=== PATIENT | female | born 1950 | race African-American/Black ===

== ENCOUNTER 2017-12-31 09:02 | Emergency (ER) | payer MEDICARE ==
[2017-12-31] MEDS ORDERED: ISOVUE-370 76%-LOCM 1 ML ONE (09:56)
[2017-12-31 10:23] LABS: #Eosinphils 0.1 thou/uL (0.0-0.7); #Lymphocytes 0.3 thou/uL (1.20-3.40); #Monocytes 0.2 thou/uL (0.11-0.59); #Neutrophils 3.2 thou/uL (1.40-6.50); %Basophils 0.2 % (0.0-1.0); %Eosinophils 1.5 % (0.0-10.0); %Lymphocytes 8.5 % (21.0-51.0); %Monocytes 6.1 % (0.0-10.0); %Neutrophils 83.8 % (42.0-75.0); Hemoglobin 10.8 g/dL (12.0-16.0); Mean Corpuscular HGB CONC 31.7 g/dL (32.0-36.0); Mean Corpuscular Hemoglobin 28.9 pg (27.0-31.0); Mean Corpuscular Volume 91.4 fL (78.0-98.0); Mean Platelet Volume 7.2 fL (7.4-10.4); Platelet Count 181 thou/uL (130-400); RBC Distribution Width 12.4 % (11.5-14.5); Red Blood Cell (RBC) Count 3.74 mill/uL (4.20-5.40); White Blood Cell (WBC) Count 3.8 thou/uL (4.8-10.8)
--- NOTE | 2017-12-31 10:28 | ULT ---
ULTRASOUND ABDOMEN LIMITED: (RIGHT UPPER QUADRANT) HISTORY: 67-year-old female with right upper quadrant abdominal pain. FINDINGS: Gallbladder: Normal wall thickness. No sonographic Jerry's sign, pericholecystic fluid, gallstones, or sludge. Common duct: 8 mm. Liver: Normal size and echogenicity. Pancreas: Nonspecific sonographic appearance. Right kidney: No hydronephrosis. IMPRESSION: 1. No evidence of cholelithiasis or acute cholecystitis. 2. Moderately dilated common duct, 8 mm. This raises the possibility of occult choledocholithiasis o r other cause of possible mild, partial common duct obstruction. DEREK Reyes POS: [facility]
[2017-12-31 10:46] LABS: ALT (SGPT) 12 U/L (8-55); AST (SGOT) 15 U/L (5-34); Albumin 3.8 g/dL (3.4-4.8); Alkaline Phosphatase 58 U/L (40-150); Anion Gap 10 mmol/L (10-20); BUN (Urea Nitrogen) 15 mg/dL (9.8-20.1); Bilirubin, Total 0.5 mg/dL (0.2-1.2); Calc. Creatinine Clearance 0 mL/min (70-130); Calcium 8.7 mg/dL (7.8-10.44); Carbon Dioxide 30 mmol/L (23-31); Chloride 102 mmol/L (98-107); Estimated GFR-MDRD Greater than 90; Globulin 2.3 g/dL (2.4-3.5); Glucose 103 mg/dL (80-115); Lipase 8 U/L (8-78); Potassium 3.5 mmol/L (3.5-5.1); Protein, Total 6.1 g/dL (6.0-8.3); Sodium 138 mmol/L (136-145)
--- NOTE | 2017-12-31 11:44 | CT ---
CT ABDOMEN AND PELVIS WITH IV CONTRAST: Date: 12/31/17 HISTORY: Upper abdominal pain. FINDINGS: There are mild dependent changes in the lung bases. No calcified gallstones are seen. The liver, sple en, pancreas, adrenal glands, and kidneys are normal. No abnormal biliary ductal dilatation is seen. No free air, free fluid, or lymphadenopathy noted in the abdomen or pelvis. A normal appearing append ix is present. A uterus is present. There is no evidence of aneurysmal dilatation of the abdominal ao rta. Degenerative changes are present in the spine. IMPRESSION: No evidence of acute process. POS: [facility]
== END 2017-12-31 13:02 | disposition home or self-care (01) ==
LOC: ERS 09:02
DX: R10.11 Right upper quadrant pain (principal); Z79.899 Other long term (current) drug therapy; J18.9 Pneumonia, unspecified organism; J44.9 Chronic obstructive pulmonary disease, unspecified; F41.9 Anxiety disorder, unspecified; F17.210 Nicotine dependence, cigarettes, uncomplicated; M19.90 Unspecified osteoarthritis, unspecified site
CPT/HCPCS: 36415; 74177; 76705; 83690; J2270

== ENCOUNTER 2018-05-31 10:47 | Day surgery (SDC) | payer MEDICARE ==
[2018-05-30 14:41] VITALS: BMI 26.6
--- NOTE | 2018-05-31 13:12 | HP ---
DATE OF ADMISSION: 05/31/2018 HISTORY OF PRESENT ILLNESS: This is a 67-year-old female who comes in for an EGD and a colonoscopy. The patient has a history of colon polyps from before and more than 5 years ago. The patient had abdominal pain recently. The pain is over the epigastric area and right upper quadrant. There i s mild nausea with the pain. The patient has had an EGD 4 years ago and was found to have Helicobact er pylori infection and was treated with antibiotics. The patient already has a history of bleeding peptic ulcer more than 10 years ago. The patient comes in for EGD because of abdominal pain, nausea, and for a colonoscopy because of history of colon polyp. ALLERGIES: None. SOCIAL HISTORY: The patient smokes. She is a smoker. She quit smoking about couple of years ago. She drinks alcohol occasionally. MEDICAL ILLNESSES: 1. Bronchial asthma. 2. Colon polyp. 3. Bleeding peptic ulcer in 2007. 4. Chronic anxiety. 5. Osteoarthritis. 6. Tubal ligation. 7. Right eye surgery. 8. Left wrist surgery. PHYSICAL EXAMINATION: VITAL SIGNS: Pulse is 74, blood pressure is 130/70. HEENT: Conjunctivae clear. CARDIOVASCULAR: First and second heart sounds are normal. LUNGS: Clear to auscultation. ABDOMEN: Soft. Abdomen is tender over the epigastric area. There is no rebound or guarding. No or ganomegaly or masses. EXTREMITIES: Reveal no edema. ADMITTING DIAGNOSES: 1. A 67-year-old female with abdominal pain, nausea, past history of bleeding peptic ulcer. 2. Colon polyp. PLAN: EGD and colonoscopy.
--- NOTE | 2018-05-31 14:02 | OP ---
DATE OF PROCEDURE: SURGEON: Terrie Diana M.D. OPERATIVE PROCEDURE: Colonoscopy with biopsy. PREOPERATIVE DIAGNOSIS: A 67-year-old female with history of colon polyp. She is u ndergoing colonoscopy. POSTOPERATIVE DIAGNOSES: 1. Hemorrhoids. 2. Diminutive polyps x2 over the lower sigmoid colon area. Otherwise, normal exam. PROCEDURE IN DETAIL: The patient was placed on her left lateral position and was given sedation by A nesthesia Department. A rectal exam was done and the scope was advanced into the rectum. No lesions felt on rectal exam. A Pentax video colonoscope was introduced into the rectum and advanced into th e cecum. The patient did have a tortuous, redundant sigmoid colon. Abdominal compression was advanc ed all the way to the cecum. The prep was very good. The mucosa appears normal throughout the colon with normal vascular pattern. The appendiceal orifice, ileocecal valve, cecum, no pathology seen. Withdrawal from cecum to ascending colon, hepatic flexure, no pathology seen. The transverse colon, splenic flexure, and descending colon, no pathology seen. The sigmoid colon showed 2 diminutive poly ps. They were biopsied. Rectum showed hemorrhoids.
--- NOTE | 2018-05-31 14:05 | OP ---
DATE OF PROCEDURE: 05/31/2018 SURGEON: Terrie Diana M.D. OPERATIVE PROCEDURE: Esophagogastroduodenoscopy with biopsy. PREOPERATIVE DIAGNOSES: 1. Abdominal pain, nausea. 2. Past history of bleeding peptic ulcer. POSTOPERATIVE DIAGNOSES: 1. Multiple whitish plaques over the mid esophagus. 2. Normal esophageal mucosa. 3. Small hiatus hernia. 4. Antral gastritis with small gastric polyp. 5. Normal duodenum. PROCEDURE IN DETAIL: The patient was placed on her left lateral position and was given sedation by A nesthesia Department. A Pentax video gastroscope under direct vision was passed down the oropharynx, past the GE junction, into the stomach. The vocal cords appeared healthy. The esophageal mucosa ap peared normal. No esophagitis seen. However, she had multiple whitish plaques over the mid esophagu s. This was mild. She had a small hiatal hernia. The fundus, cardia and gastric body, no pathology seen. Over the gastric antrum, the patient found to have polyp which was mild. She also had mild g astritis. The duodenal bulb and descending duodenum, no pathology seen. The stomach was decompresse d and the scope removed. DISCHARGE PLANNING: This is a 67-year-old pleasant female with abdominal pain, naus ea, and also history of colon polyp. The EGD showed a gastric polyp, gastritis and some whitish plaq ues in the esophagus. The colonoscopy showed 2 diminutive sigmoid polyps. DISCHARGE RECOMMENDATIONS: 1. The patient was advised to call me if she develops abdominal pain and hematochezia. 2. Continue all medicines as before. 3. Await biopsy results before I make recommendations.
[2018-05-31] MEDS ORDERED: PROPOFOL 200 MG/20 ML VIAL ONE (15:57)
[2018-05-31] MEDS ORDERED: Lidocaine 1% PF 5 ML VIAL ONE (15:57)
== END 2018-05-31 14:50 | disposition home or self-care (01) ==
LOC: SDC 10:47
PROVIDERS: ATTEND Internal Medicine Gastroenterology
PROC: 0DBN8ZX Excision of Sigmoid Colon, Via Natural or Artificial Opening Endoscopic, Diagnostic (ICD-10-PCS; principal; 2018-05-31)
PROC: 0DB58ZX Excision of Esophagus, Via Natural or Artificial Opening Endoscopic, Diagnostic (ICD-10-PCS; 2018-05-31)
PROC: 0DB68ZX Excision of Stomach, Via Natural or Artificial Opening Endoscopic, Diagnostic (ICD-10-PCS; 2018-05-31)
DX: Z12.11 Encounter for screening for malignant neoplasm of colon (principal); K63.5 Polyp of colon; K64.9 Unspecified hemorrhoids; K31.7 Polyp of stomach and duodenum; K29.50 Unspecified chronic gastritis without bleeding; K20.9 Esophagitis, unspecified; K63.89 Other specified diseases of intestine; K44.9 Diaphragmatic hernia without obstruction or gangrene; J45.909 Unspecified asthma, uncomplicated; F41.9 Anxiety disorder, unspecified; M19.90 Unspecified osteoarthritis, unspecified site; Z86.010 Personal history of colon polyps; Z79.899 Other long term (current) drug therapy; Z88.8 Allergy status to other drugs, medicaments and biological substances
CPT/HCPCS: 88305; 88312; 88313; J2001; J2704

== ENCOUNTER 2019-07-14 09:27 | Inpatient (IN) | payer MEDICARE ==
[2019-07-14 10:00] LABS: #Lymphocytes 0.5 thou/uL (1.20-3.40); #Monocytes 0.5 thou/uL (0.11-0.59); #Neutrophils 3.3 thou/uL (1.40-6.50); %Basophils 0.4 % (0.0-1.0); %Eosinophils 0.1 % (0.0-10.0); %Lymphocytes 11.3 % (21.0-51.0); %Monocytes 12.2 % (0.0-10.0); %Neutrophils 75.9 % (42.0-75.0); Hemoglobin 11.9 g/dL (12.0-16.0); Mean Corpuscular HGB CONC 32.1 g/dL (32.0-36.0); Mean Corpuscular Hemoglobin 28.4 pg (27.0-31.0); Mean Corpuscular Volume 88.5 fL (78.0-98.0); Mean Platelet Volume 9.9 fL (7.4-10.4); Platelet Count 151 thou/uL (130-400); RBC Distribution Width 12.7 % (11.5-14.5); Red Blood Cell (RBC) Count 4.18 mill/uL (4.20-5.40); White Blood Cell (WBC) Count 4.4 thou/uL (4.8-10.8)
--- NOTE | 2019-07-14 10:14 | RAD ---
Portable frontal chest radiograph: 07/14/2019 COMPARISON: 04/02/2018 HISTORY: Cough FINDINGS: Lungs are clear. Heart and mediastinal contours appear within normal limits. Mild increased linear interstitial density with pulmonary hyperinflation. IMPRESSION: No acute findings.
[2019-07-14 10:20] LABS: ALT (SGPT) 16 U/L (8-55); AST (SGOT) 22 U/L (5-34); Albumin 4.1 g/dL (3.4-4.8); Alkaline Phosphatase 68 U/L (40-110); Anion Gap 14 mmol/L (10-20); BUN (Urea Nitrogen) 11 mg/dL (9.8-20.1); Bilirubin, Total 0.4 mg/dL (0.2-1.2); Calc. Creatinine Clearance 0 mL/min (70-130); Calcium 8.6 mg/dL (7.8-10.44); Carbon Dioxide 22 mmol/L (23-31); Chloride 102 mmol/L (98-107); Estimated GFR-MDRD 83; Globulin 2.9 g/dL (2.4-3.5); Glucose 125 mg/dL (80-115); Potassium 3.4 mmol/L (3.5-5.1); Sodium 135 mmol/L (136-145)
[2019-07-14 11:17] LABS: Bacteria/HPF 1+ HPF (None Seen); Bilirubin Negative (Negative); Blood, Urine 1+ (Negative); Clarity Clear (Clear); Glucose, Urine (Dipstick) Normal (Negative); Leukocyte Negative Leu/uL (Negative); Mucous/LPF 1+ LPF (<2+); Nitrite Negative (Negative); Protein, Urine (Dipstick) 20 mg/dL (Neg-Trace); Squamous Epithelial 0-3 HPF (0-3); Urobilinogen Normal mg/dL (Less than 2); WBC/HPF 0-3 HPF (0-3)
[2019-07-14] MEDS ORDERED: Magnesium 2 GM/50 ML BAG (IN WATER) ONE (11:54)
[2019-07-14] MEDS ORDERED: methylPREDNISolone Sod Succ/PF 125 MG/2 ML VIAL ONE (11:54)
[2019-07-14] MEDS ORDERED: Oseltamivir 75 MG CAP PO SCH (12:00)
--- NOTE | 2019-07-14 12:58 | PDOC.FPRHP ---
- History of Present Illness Chief Complaint: SOB History of Present Illness: Patient is a 68F with PMHx of asthma, COPD, OA that presents to the ED with SOB. Pt states she cannot breath, SOB that started yesterday. Worsened overnight. Called 911 and came to ER via ambulance. Pt had fever of 101.3 upon arrival. Pt was feeling close to normal self yesterday before becoming sob. In May pt states she had a "real bad cold," and given antibiotics, prednisone and symptoms alleviated. Vaccinated for influenza this season and utd with pneumonia shot. c/o stomach cramps, headache, cough with smokey gracia color mucus production. Denies CP/N/V/D. Pt states she has tried duonebs and albuterol which didn't relieve her SOB. ED Course: 2L NS, 2g mag, 75mg tamiflu, 125mg solumedrol, 3ml duoneb - Allergies/Adverse Reactions Allergies Allergy/AdvReac Type Severity Reaction Status Date / Time No Known Allergies Allergy Unverified 07/14/19 16:53 - Home Medications Medication Instructions Recorded Confirmed Type Albuterol Sulfate [Albuterol 2 puff PO Q4H PRN 02/27/13 07/14/19 History Sulfate Hfa] HYDROcodone/Acetaminophen 1 tab PO Q6H PRN 05/30/18 07/14/19 History [Hydrocodone-Acetamin 10-325 mg] Montelukast Sodium [Singulair] 10 mg PO QPM 05/30/18 07/14/19 History Omeprazole 40 mg PO DAILY 05/30/18 07/14/19 History Potassium Chloride [Klor-Con 10] 10 meq PO DAILY 05/30/18 07/14/19 History ALPRAZolam [Xanax] 2 mg PO HS PRN 07/14/19 07/14/19 History Budesonide 0.25 mg NEB BID 07/14/19 07/14/19 History Budesonide [Pulmicort Neb Solution] 0.25 mg NEB BID 07/14/19 07/14/19 History Ipratropium/Albuterol Sulfate 3 ml NEB Q4H PRN 07/14/19 07/14/19 History [Duoneb] Ipratropium/Albuterol Sulfate 3 ml NEB QID PRN 07/14/19 07/14/19 History [Duoneb] - History PMHx: asthma, COPD, OA. One hospitalization for COPD exacerbation last year. PUD PSHx: ganglion cyst removal, tonsillectomy, tubal ligation, R lens sx, benign polypectomy via colonoscopy. FHx: Niece and nephew have DM II Social: former marijuana use, drinks etoh 1x/2-3 months. 15 pack cigarette user. Last tobacco use around 2018. - Vital signs BP: [121/67] HR: [112] RR: [25] Tmax: [101.3F] Pox: [91]% on [RA] Wt: [74.84kg ] - Physical Exam Constitutional: NAD, well developed HEENT: EOMI, MMM Neck: supple, FROM Chest: no-tender to palpation, no lesions Heart: normal S1/S2, other (tachycardic rate) Lungs: other (poor air movement, expiratory wheezing throughout) Abdomen: soft, non-tender Musculoskeletal: normal structure, normal tone Neurological: normal sensation, other (resting tremor, chronic) Skin: no rash/lesions, good turgor Heme/Lymphatic: no unusual bruising or bleeding, no purpura Psychiatric: normal mood and affect, good judgment and insight FMR H&P: Results - Labs Result Diagrams: 07/14/19 09:40 07/14/19 09:40 Lab results: WBC 4.4 thou/uL (4.8-10.8) L 07/14/19 09:40 Hgb 11.9 g/dL (12.0-16.0) L 07/14/19 09:40 Hct 37.0 % (36.0-47.0) 07/14/19 09:40 MCV 88.5 fL (78.0-98.0) 07/14/19 09:40 Plt Count 151 thou/uL (130-400) 07/14/19 09:40 Neutrophils % 75.9 % (42.0-75.0) H 07/14/19 09:40 Sodium 135 mmol/L (136-145) L 07/14/19 09:40 Potassium 3.4 mmol/L (3.5-5.1) L 07/14/19 09:40 Chloride 102 mmol/L (98-107) 07/14/19 09:40 Carbon Dioxide 22 mmol/L (23-31) L 07/14/19 09:40 BUN 11 mg/dL (9.8-20.1) 07/14/19 09:40 Creatinine 0.83 mg/dL (0.6-1.1) 07/14/19 09:40 Glucose 125 mg/dL (80-115) H 07/14/19 09:40 Lactic Acid 1.0 mmol/L (0.5-2.2) 07/14/19 09:40 Calcium 8.6 mg/dL (7.8-10.44) 07/14/19 09:40 Total Bilirubin 0.4 mg/dL (0.2-1.2) 07/14/19 09:40 AST 22 U/L (5-34) 07/14/19 09:40 ALT 16 U/L (8-55) 07/14/19 09:40 Alkaline Phosphatase 68 U/L (40-110) 07/14/19 09:40 Serum Total Protein 7.0 g/dL (6.0-8.3) 07/14/19 09:40 Albumin 4.1 g/dL (3.4-4.8) 07/14/19 09:40 Urine Ketones Negative mg/dL (Negative) 07/14/19 10:44 Urine Blood 1+ (Negative) A 07/14/19 10:44 Urine Nitrite Negative (Negative) 07/14/19 10:44 Ur Leukocyte Esterase Negative Gibson/uL (Negative) 07/14/19 10:44 Urine RBC 4-6 HPF (0-3) A 07/14/19 10:44 Urine WBC 0-3 HPF (0-3) 07/14/19 10:44 Ur Squamous Epith Cells 0-3 HPF (0-3) 07/14/19 10:44 Urine Bacteria 1+ HPF (None Seen) A 07/14/19 10:44 - EKG Interpretation EKG: Sinus tach - Radiology Interpretation Chest x-ray Status: report reviewed by me (No acute process, pulmonary hyperinflation) FMR H&P: A/P - Problem List (1) Acute respiratory failure with hypoxia Current Visit: Yes Status: Acute Code(s): J96.01 - ACUTE RESPIRATORY FAILURE WITH HYPOXIA (2) Influenza A Current Visit: Yes Status: Acute Code(s): J10.1 - FLU DUE TO OTH IDENT INFLUENZA VIRUS W OTH RESP MANIFEST (3) COPD (chronic obstructive pulmonary disease) Current Visit: Yes Status: Chronic (4) Asthma Current Visit: Yes Status: Chronic Code(s): J45.909 - UNSPECIFIED ASTHMA, UNCOMPLICATED (5) Osteoarthritis Current Visit: Yes Status: Chronic Code(s): M19.90 - UNSPECIFIED OSTEOARTHRITIS, UNSPECIFIED SITE (6) Sepsis Current Visit: Yes Status: Acute Code(s): A41.9 - SEPSIS, UNSPECIFIED ORGANISM (7) COPD exacerbation Current Visit: Yes Status: Acute Code(s): J44.1 - CHRONIC OBSTRUCTIVE PULMONARY DISEASE W (ACUTE) EXACERBATION - Plan Patient is a 68F with PMHx of asthma, COPD, OA that is admitted for acute hypoxic respiratory failure and sepsis due to Influenza A. #Acute hypoxic respiratory failure #COPD exacerbation due to influenza A #Sepsis due to influenza A -new oxygen requirement -+influenza A -tachycardic, febrile, and tachypnic with source of infection -received 2L NS in ED, will continue maintenance fluids -started on tamiflu in ED, continue -duonebs q4h -albuterol prn -supplemental oxygen prn #COPD -continue home meds #Asthma -continue home meds #OA -will old home norco for now until respiratory condition improves DVT ppx: SCDs Dispo: inpatient for respiratory support and monitoring Code: Full PCP: Liz from [facility] FMR H&P: Upper Level - Pertinent history 68 yo F with PMHx of COPD and asthma here with complaint of SOB for day. Associated symptoms include fever, cough, and malaise. In the ER she was found to be influenza A positive. She was also hypoxic to 88 on RA, this came up to 99 on 2L. Other lab abnormalities include Hb of 11.9 and K of 3.4. PMHx: COPD Asthma PSHx: Polypectomy Tonsillectomy Tubal ligation FHx: non contributory Social Hx: 30+ pack year hx quit 3 months ago Previous marijuana use Periodic etoh - Pertinent findings See recruiting intern note for full ROS, PE, vitals, and labs ROS Gen Complains of fever and chills CV Denies CP, palpitation, or orthopnea Resp Complains of SOB and cough GI Denies n/v/d or abdominal pain denies dysuria, frequency, urgency Neuro Denies numbness, weakness, changes in vision PE General A&O x4 HEENT NCAT CV Tachycardic, no murmur Resp Bilateral wheeze throughout Abd Non tender, no distension Extremities no edema Neuro Tremor in both hands - Plan Date/Time: 07/14/19 1256 I, Laurent Arias DO, have evaluated this patient and agree with findings/plan as outlined by recruiting intern resident. Pertinent changes/additions are listed here. 1. Acute hypoxic respiratory failure secondary to COPD exacerbation -Most likely precipitated by Flu A -Schedule duoneb and give albuterol prn -Will hold prednisone due to flu -Wean O2 as tolerated 2. Sepsis secondary to flu - 30 mL/kg given in ER. Blood pressure is stable -Tamiflu BID 3. COPD -Restart home meds PPx SCD Diet regular Code Full Dispo: Stable patient. Would expect 2-3 days inpatient at this time Addendum - Attending - Attending Attestation Date/Time: 07/14/19 5980 I personally evaluated the patient and discussed the management with Dr. Avila I agree with the History, Examination, Assessment and Plan documented above with any addition or exceptions noted below. see my event note for details.
--- NOTE | 2019-07-14 14:33 | PDOC.EVN ---
Addendum - Attending - Attending Attestation Date/Time: 07/14/19 7121 I personally evaluated the patient and discussed the management with Dr. Manuel/ Hugo I agree with the History, Examination, Assessment and Plan documented above with any addition or exceptions noted below. 68 yo AAF PMH COPD. Presents with 1 day hx cough, SOB, fever, body aches, and headache. Exam showed diffuse wheezing throughout all lung [place]. Initially hypoxic to low 90s on RA. Resolved with NC oxygen. tachycardic and tachypnic but no increased work of breathing. Labs show flu A positive but otherwise unremarkable. CXR negative. EKG sinus tachycardia but no ST changes and normal intervals. Admit for Acute hypoxic resp distress, sepsis 2/2 influenza A, and COPD exacerbation. Tamiflu, prednisone, supplemental oxygen as needed and duonebs as needed. Will check procalcitonin. IV fluids until tolerating PO. Chronic problems per exercise science internship note. Inpatient, medical, >2 midnights.
[2019-07-14] MEDS ORDERED: Ondansetron ODT 4 MG TAB PO PRN (16:58)
[2019-07-14] MEDS ORDERED: Albuterol Sulfate 2.5 mg/3 ml Neb NEB PRN (16:58)
[2019-07-14 17:14] VITALS: BMI 25.2
[2019-07-14] MEDS ORDERED: Polyethylene Glycol 3350 17 GM Packet PO SCH (17:45)
[2019-07-14] MEDS: Acetaminophen 325 MG TAB PO PRN (18:34)
[2019-07-14] MEDS: Budesonide 0.25 MG/2 ML NEB NEB SCH (20:08)
[2019-07-14] MEDS: Arformoterol 15 MCG/2 ML NEB NEB SCH (20:11)
[2019-07-14] MEDS ORDERED: Naproxen 500 MG TAB PO PRN (21:00)
[2019-07-14] MEDS: Oseltamivir 75 MG CAP PO SCH (21:39)
[2019-07-14] MEDS: Montelukast Sodium 10 mg Tablet PO SCH (21:39)
--- NOTE | 2019-07-15 06:12 | PDOC.FM ---
- Subjective Subjective: Pt tolerated RA overnight with O saturation in 94-96% C/o SOB, and coughing. Night sweats overnight. Afebrile overnight. - Objective MAR Reviewed: Yes Vital Signs & Weight: Vital Signs (12 hours) Temp Pulse Resp BP BP Pulse Ox 07/15/19 03:42 98.2 F 63 20 102/60 96 07/15/19 00:00 98.3 F 73 20 139/70 95 07/14/19 21:15 98.6 F 105 H 20 122/76 94 L 07/14/19 20:00 94 L 07/14/19 19:58 96 Weight Weight 68.674 kg I&O: 07/13/19 07/14/19 07/15/19 06:59 06:59 06:59 Intake Total 240 Balance 240 Result Diagrams: 07/15/19 06:09 07/15/19 06:09 Phys Exam - Physical Examination Constitutional: NAD HEENT: moist MMs, sclera anicteric Neck: supple, full ROM Respiratory: wheezing present Cardiovascular: RRR, no significant murmur, no rub Gastrointestinal: soft, non-tender, no distention Musculoskeletal: no edema, pulses present Neurological: non-focal, moves all 4 limbs Psychiatric: normal affect, A&O x 3 Skin: no rash, cap refill <2 seconds Dx/Plan (1) Sepsis Code(s): A41.9 - SEPSIS, UNSPECIFIED ORGANISM Status: Acute Qualifiers: Acute respiratory failure type: with hypoxia (2) Influenza A Code(s): J10.1 - FLU DUE TO OTH IDENT INFLUENZA VIRUS W OTH RESP MANIFEST Status: Acute (3) Acute respiratory failure with hypoxia Code(s): J96.01 - ACUTE RESPIRATORY FAILURE WITH HYPOXIA Status: Acute (4) COPD exacerbation Code(s): J44.1 - CHRONIC OBSTRUCTIVE PULMONARY DISEASE W (ACUTE) EXACERBATION Status: Acute (5) Asthma Code(s): J45.909 - UNSPECIFIED ASTHMA, UNCOMPLICATED Status: Chronic (6) COPD (chronic obstructive pulmonary disease) Status: Chronic (7) Osteoarthritis Code(s): M19.90 - UNSPECIFIED OSTEOARTHRITIS, UNSPECIFIED SITE Status: Chronic - Plan Plan: Patient is a 68F with PMHx of asthma, COPD, OA that is admitted for acute hypoxic respiratory failure and sepsis due to Influenza A. #Acute hypoxic respiratory failure #COPD exacerbation due to influenza A #Sepsis due to influenza A - new oxygen requirement, tolerating RA at rest overnight. - +influenza A - tachycardic, febrile, and tachypnic with source of infection - received 2L NS in ED, encourage PO hydration. - started on tamiflu in ED, continue BID for 10 doses. - duonebs q4h - albuterol prn - supplemental oxygen prn - Prednisone 40 mg daily, X5 doses. #COPD -continue home meds - duonebs and albuterol. #Asthma -continue home meds #OA -will old home norco for now until respiratory condition improves DVT ppx: SCDs Dispo: inpatient for respiratory support and monitoring Code: Full PCP: Liz from [facility] Addendum - Attending - Attending Attestation Date/Time: 07/15/19 1121 I personally evaluated the patient and discussed the management with Dr. Manuel I agree with the History, Examination, Assessment and Plan documented above with any addition or exceptions noted below. Patient is improved continue oxygen support as needed and COPD exacerbation treatment.
[2019-07-15 06:31] LABS: #Lymphocytes 1.1 thou/uL (1.20-3.40); #Monocytes 0.4 thou/uL (0.11-0.59); #Neutrophils 3.4 thou/uL (1.40-6.50); %Basophils 0.4 % (0.0-1.0); %Eosinophils 0.2 % (0.0-10.0); %Lymphocytes 22.5 % (21.0-51.0); %Monocytes 8.4 % (0.0-10.0); %Neutrophils 68.6 % (42.0-75.0); Hemoglobin 11.7 g/dL (12.0-16.0); Mean Corpuscular Hemoglobin 28.7 pg (27.0-31.0); Mean Corpuscular Volume 89.8 fL (78.0-98.0); Mean Platelet Volume 8.2 fL (7.4-10.4); Platelet Count 194 thou/uL (130-400); RBC Distribution Width 12.8 % (11.5-14.5); Red Blood Cell (RBC) Count 4.09 mill/uL (4.20-5.40)
[2019-07-15] MEDS: Arformoterol 15 MCG/2 ML NEB NEB SCH ×2 (06:52→18:44)
[2019-07-15] MEDS: Budesonide 0.25 MG/2 ML NEB NEB SCH ×2 (06:52→18:46)
[2019-07-15 06:57] LABS: ALT (SGPT) 20 U/L (8-55); AST (SGOT) 22 U/L (5-34); Albumin 3.9 g/dL (3.4-4.8); Alkaline Phosphatase 63 U/L (40-110); Anion Gap 14 mmol/L (10-20); BUN (Urea Nitrogen) 12 mg/dL (9.8-20.1); Bilirubin, Total 0.3 mg/dL (0.2-1.2); Calc. Creatinine Clearance 74 mL/min (70-130); Calcium 8.5 mg/dL (7.8-10.44); Carbon Dioxide 23 mmol/L (23-31); Chloride 107 mmol/L (98-107); Estimated GFR-MDRD 86; Globulin 2.7 g/dL (2.4-3.5); Glucose 144 mg/dL (80-115); Potassium 4.1 mmol/L (3.5-5.1); Protein, Total 6.6 g/dL (6.0-8.3); Sodium 140 mmol/L (136-145)
[2019-07-15] MEDS: Polyethylene Glycol 3350 17 GM Packet PO SCH (07:54)
[2019-07-15] MEDS: Oseltamivir 75 MG CAP PO SCH ×2 (07:54→21:15)
[2019-07-15] MEDS: Potassium Chloride 10 MEQ TAB PO SCH (07:54)
[2019-07-15] MEDS: predniSONE 20 MG TAB PO SCH (07:54)
[2019-07-15] MEDS: guaiFENesin ER 600 MG TAB PO SCH (14:10)
[2019-07-15] MEDS: Montelukast Sodium 10 mg Tablet PO SCH (21:15)
[2019-07-16] MEDS: guaiFENesin ER 600 MG TAB PO SCH ×2 (01:34→12:01)
[2019-07-16 05:17] LABS: #Lymphocytes 1.5 thou/uL (1.20-3.40); #Monocytes 0.5 thou/uL (0.11-0.59); #Neutrophils 3.1 thou/uL (1.40-6.50); %Basophils 0.6 % (0.0-1.0); %Eosinophils 0.1 % (0.0-10.0); %Lymphocytes 28.9 % (21.0-51.0); %Monocytes 9.6 % (0.0-10.0); %Neutrophils 60.8 % (42.0-75.0); Hemoglobin 11.8 g/dL (12.0-16.0); Mean Corpuscular HGB CONC 30.4 g/dL (32.0-36.0); Mean Corpuscular Hemoglobin 27.5 pg (27.0-31.0); Mean Corpuscular Volume 90.7 fL (78.0-98.0); Mean Platelet Volume 8.5 fL (7.4-10.4); Platelet Count 203 thou/uL (130-400); RBC Distribution Width 13.1 % (11.5-14.5); Red Blood Cell (RBC) Count 4.29 mill/uL (4.20-5.40); White Blood Cell (WBC) Count 5.1 thou/uL (4.8-10.8)
[2019-07-16 05:42] LABS: ALT (SGPT) 21 U/L (8-55); AST (SGOT) 22 U/L (5-34); Albumin 3.8 g/dL (3.4-4.8); Alkaline Phosphatase 57 U/L (40-110); Anion Gap 11 mmol/L (10-20); BUN (Urea Nitrogen) 15 mg/dL (9.8-20.1); Bilirubin, Total 0.2 mg/dL (0.2-1.2); Calc. Creatinine Clearance 79 mL/min (70-130); Calcium 8.8 mg/dL (7.8-10.44); Carbon Dioxide 28 mmol/L (23-31); Chloride 107 mmol/L (98-107); Estimated GFR-MDRD Greater than 90; Globulin 2.7 g/dL (2.4-3.5); Glucose 89 mg/dL (80-115); Protein, Total 6.5 g/dL (6.0-8.3); Sodium 142 mmol/L (136-145)
--- NOTE | 2019-07-16 06:11 | PDOC.FM ---
- Subjective Subjective: Pt states her SOB is improved. She is fearful of developing pneumonia. Denies CP. afebrile overnight. no acute overnight events. Slept well. - Objective MAR Reviewed: Yes Vital Signs & Weight: Vital Signs (12 hours) Temp Pulse Resp BP Pulse Ox 07/15/19 20:44 98.0 F 83 18 124/83 95 07/15/19 20:00 95 07/15/19 18:44 72 14 96 Weight Weight 68.674 kg I&O: 07/14/19 07/15/19 07/16/19 06:59 06:59 06:59 Intake Total 640 1200 Balance 640 1200 Result Diagrams: 07/16/19 04:54 07/16/19 04:54 Phys Exam - Physical Examination Constitutional: NAD HEENT: moist MMs, sclera anicteric Neck: supple, full ROM Respiratory: wheezing present Cardiovascular: RRR, no significant murmur, no rub Gastrointestinal: soft, non-tender, no distention, positive bowel sounds Musculoskeletal: no edema, pulses present Neurological: non-focal, moves all 4 limbs Psychiatric: normal affect, A&O x 3 Skin: no rash Dx/Plan (1) Sepsis Code(s): A41.9 - SEPSIS, UNSPECIFIED ORGANISM Status: Acute Qualifiers: Acute respiratory failure type: with hypoxia (2) Influenza A Code(s): J10.1 - FLU DUE TO OTH IDENT INFLUENZA VIRUS W OTH RESP MANIFEST Status: Acute (3) COPD exacerbation Code(s): J44.1 - CHRONIC OBSTRUCTIVE PULMONARY DISEASE W (ACUTE) EXACERBATION Status: Acute (4) Asthma Code(s): J45.909 - UNSPECIFIED ASTHMA, UNCOMPLICATED Status: Chronic Qualifiers: Asthma severity: moderate Asthma persistence: persistent Asthma complication type: with acute exacerbation Qualified Code(s): J45.41 - Moderate persistent asthma with (acute) exacerbation (5) COPD (chronic obstructive pulmonary disease) Status: Chronic (6) Osteoarthritis Code(s): M19.90 - UNSPECIFIED OSTEOARTHRITIS, UNSPECIFIED SITE Status: Chronic - Plan Plan: Patient is a 68F with PMHx of asthma, COPD, OA that is admitted for acute hypoxic respiratory failure and sepsis due to Influenza A. #Acute hypoxic respiratory failure #COPD exacerbation due to influenza A #Sepsis due to influenza A - new oxygen requirement, tolerating RA after first hx day. - +influenza A - tachycardic, febrile, and tachypnic with source of infection - received 2L NS in ED, encourage PO hydration. - started on tamiflu in ED, continue BID for 10 doses. - duonebs q4h - albuterol prn - supplemental oxygen prn - Prednisone 40 mg daily, X5 doses. #COPD -continue home meds - duonebs and albuterol. #Asthma -continue home meds #OA -will old home norco for now until respiratory condition improves # Tremor, most likely essential - Pt states this is a known chronic problem, exacerbated with albuterol nebulizer treatments. DVT ppx: SCDs Dispo: inpatient for respiratory support and monitoring Code: Full PCP: Liz from [facility] Addendum - Attending - Attending Attestation Date/Time: 07/19/19 0620 I personally evaluated the patient and discussed the management with Dr. Bentley I agree with the History, Examination, Assessment and Plan documented above with any addition or exceptions noted below.
[2019-07-16] MEDS: Budesonide 0.25 MG/2 ML NEB NEB SCH (06:20)
[2019-07-16] MEDS: Arformoterol 15 MCG/2 ML NEB NEB SCH (06:30)
[2019-07-16] MEDS ORDERED: ALPRAZolam 1 MG TAB PO PRN (07:43)
[2019-07-16] MEDS: predniSONE 20 MG TAB PO SCH (09:12)
[2019-07-16] MEDS: Oseltamivir 75 MG CAP PO SCH ×2 (09:12→19:23)
[2019-07-16] MEDS: Potassium Chloride 10 MEQ TAB PO SCH (09:12)
[2019-07-16] MEDS: Polyethylene Glycol 3350 17 GM Packet PO SCH (09:12)
[2019-07-16] MEDS: Acetaminophen 325 MG TAB PO PRN (18:08)
[2019-07-16] MEDS: Montelukast Sodium 10 mg Tablet PO SCH (19:22)
[2019-07-17] MEDS: Arformoterol 15 MCG/2 ML NEB NEB SCH ×3 (00:02→18:53)
[2019-07-17] MEDS: Budesonide 0.25 MG/2 ML NEB NEB SCH ×3 (00:03→18:51)
[2019-07-17] MEDS: guaiFENesin ER 600 MG TAB PO SCH ×3 (00:34→20:34)
[2019-07-17] MEDS: Potassium Chloride 10 MEQ TAB PO SCH (08:12)
[2019-07-17] MEDS: Polyethylene Glycol 3350 17 GM Packet PO SCH (08:12)
[2019-07-17] MEDS: predniSONE 20 MG TAB PO SCH (08:14)
[2019-07-17] MEDS: Oseltamivir 75 MG CAP PO SCH ×2 (08:14→20:34)
[2019-07-17] MEDS ORDERED: Albuterol Sulfate 2.5 mg/3 ml Neb NEB PRN (09:08)
--- NOTE | 2019-07-17 09:13 | PDOC.FM ---
- Subjective Subjective: Pt is still not at baseline but improved this morning. No acute events overnight. Respiratory status improved with breathing tx. Has pulm at [facility] [employer] [facility], has difficulty affording inhalers as outpt. Did have chills overnight. Ambulating well. Tolerating PO intake. Denies CP. - Objective MAR Reviewed: Yes Vital Signs & Weight: Vital Signs (12 hours) Temp Pulse Resp BP Pulse Ox 07/17/19 08:29 97.7 F 60 18 108/68 99 07/17/19 07:33 90 20 95 07/17/19 07:31 90 20 95 Weight Weight 68.674 kg I&O: 07/16/19 07/17/19 07/18/19 06:59 06:59 06:59 Intake Total 1200 800 Balance 1200 800 Result Diagrams: 07/16/19 04:54 07/16/19 04:54 Phys Exam - Physical Examination Constitutional: NAD (sitting upright in bed, resting, mild work of breathing.) HEENT: moist MMs Neck: no nodes, supple Respiratory: no rales, no rhonchi Diffuse end-exp wheeze throughout. Good aeration. Cardiovascular: RRR, no significant murmur, no rub Gastrointestinal: soft, non-tender, no distention, positive bowel sounds Musculoskeletal: no edema Neurological: non-focal essential tremor Psychiatric: normal affect, A&O x 3 Deviation from normal: anxious-appearing Skin: no rash Dx/Plan (1) Acute respiratory failure with hypoxia Code(s): J96.01 - ACUTE RESPIRATORY FAILURE WITH HYPOXIA Status: Acute (2) COPD exacerbation Code(s): J44.1 - CHRONIC OBSTRUCTIVE PULMONARY DISEASE W (ACUTE) EXACERBATION Status: Acute (3) Influenza A Code(s): J10.1 - FLU DUE TO OTH IDENT INFLUENZA VIRUS W OTH RESP MANIFEST Status: Acute (4) Asthma Code(s): J45.909 - UNSPECIFIED ASTHMA, UNCOMPLICATED Status: Chronic - Plan Plan: Patient is a 68F with PMHx of asthma, COPD, OA that is admitted for acute hypoxic respiratory failure and sepsis 2/2 Influenza A. #Acute hypoxic respiratory failure and Sepsis 2/2 Influenza A, improving - Initially requiring O2, weaned to RA and satting in mid-90s - Positive FluA meeting sepsis criteria initially - Started on tamiflu for total 5d course - Underlying Asthma and COPD, on prednisone 40mg x5d and duonebs tx - cont home COPD and Asthma home meds - Resp status improved on exam #COPD - continue home meds - duonebs prn #Asthma - Has had difficultly affording inhalers in past, on neb tx of LABA and ICS, will cont #OA -will old home norco for now until respiratory condition improves # Tremor, most likely essential - Pt states this is a known chronic problem, exacerbated with albuterol nebulizer treatments. - Has prn xanax at home for tremor and anxiety, will cont DVT ppx: SCDs Diet: Regular IVF: SL Code: Full PCP: Liz from [facility] Dispo: Respiratory status improving, will cont tx and monitor closely. Anticipate discharge in next 1-2 days pending clinical course. Addendum - Attending - Attending Attestation Date/Time: 07/17/192039 I personally evaluated the patient and discussed the management with Dr. Fu I agree with the History, Examination, Assessment and Plan documented above with any addition or exceptions noted below.
[2019-07-17] MEDS: Acetaminophen 325 MG TAB PO PRN ×2 (13:52→22:24)
[2019-07-17] MEDS ORDERED: Mometasone/Formoterol 120 PUFF INHALER INH SCH (18:30)
[2019-07-17] MEDS: Montelukast Sodium 10 mg Tablet PO SCH (20:34)
--- NOTE | 2019-07-18 05:40 | PDOC.FM ---
- Subjective Subjective: Pt doing well this morning, no acute events overnight. Still with night sweats requiring change of clothes. SOB improved. Still with productive cough. Tolerating PO well. Ambulating around [place]. Voiding and stooling without difficulty. Pt with concern for secondary pneumonia. States breathing is improved with breathing tx. - Objective MAR Reviewed: Yes Vital Signs & Weight: Vital Signs (12 hours) Temp Pulse Resp BP Pulse Ox 07/17/19 20:00 97 07/17/19 19:14 97.9 F 67 18 112/69 97 07/17/19 18:51 94 16 94 L Weight Weight 68.674 kg I&O: 07/16/19 07/17/19 07/18/19 06:59 06:59 06:59 Intake Total 0265 625 8873 Balance 5067 789 5604 Result Diagrams: 07/16/19 04:54 07/16/19 04:54 Phys Exam - Physical Examination Constitutional: NAD (sitting upright in bed, audible wheeze on exam, increased WOB.) HEENT: moist MMs Neck: supple Respiratory: no rales, no rhonchi, wheezing present (throughout, end-expiratory) good aerationg throughout Cardiovascular: RRR, no significant murmur, no rub Gastrointestinal: soft, non-tender, no distention, positive bowel sounds Musculoskeletal: no edema, pulses present Neurological: non-focal, moves all 4 limbs Psychiatric: normal affect (anxious), A&O x 3 Skin: no rash Dx/Plan (1) Acute respiratory failure with hypoxia Code(s): J96.01 - ACUTE RESPIRATORY FAILURE WITH HYPOXIA Status: Resolved (2) COPD exacerbation Code(s): J44.1 - CHRONIC OBSTRUCTIVE PULMONARY DISEASE W (ACUTE) EXACERBATION Status: Acute (3) Influenza A Code(s): J10.1 - FLU DUE TO OTH IDENT INFLUENZA VIRUS W OTH RESP MANIFEST Status: Acute (4) Asthma Code(s): J45.909 - UNSPECIFIED ASTHMA, UNCOMPLICATED Status: Chronic Qualifiers: Asthma severity: moderate Asthma persistence: persistent Asthma complication type: with acute exacerbation Qualified Code(s): J45.41 - Moderate persistent asthma with (acute) exacerbation - Plan Plan: Patient is a 68F with PMHx of asthma, COPD, OA that is admitted for acute hypoxic respiratory failure and sepsis 2/2 Influenza A. #Acute hypoxic respiratory failure and Sepsis 2/2 Influenza A, improving - Initially requiring O2, weaned to RA and satting in mid-90s. - Positive FluA meeting sepsis criteria initially, now VSS - Cont tamiflu for total 5d course - Underlying Asthma and COPD, on prednisone 40mg x5d and duonebs q4h deyanira with prn - cont home COPD and Asthma home meds - Resp status improved on exam - Pt with subjective fever, night swetas, chills. Slight concern for secondary bacterial PNA, will repeat CXR this AM #COPD exacerbation - continue home meds - duonebs deyanira with prn #Moderate Persistent Asthma, with exacerbation - Has had difficultly affording inhalers in past, on neb tx of LABA and ICS deyanira BID, will cont - Pt will benefit from close OP f/u with PCP and Pulm for asthma management #OA - Cont naproxen prn, holding home norco for now # Tremor, most likely essential - Pt states this is a known chronic problem, exacerbated with albuterol nebulizer treatments. - Has prn xanax at home for tremor and anxiety, will cont DVT ppx: SCDs Diet: Regular IVF: SL Code: Full PCP: Liz from [facility] Dispo: Respiratory status improving, will cont tx and monitor closely. Anticipate discharge today vs tomorrow pending clinical course. Addendum - Physician - Physician Attestation Date/Time: 07/18/19 1200 I personally performed or re-performed the physical examination and medical decision making. I have verified all Resident documentation or findings, including history, physical exam and/or medical decision making. Discharge home today. Complete course of Tamiflu and steroid steroid taper over the next 2 weeks. Followed PCP end of this week earlier next.
[2019-07-18] MEDS: Budesonide 0.25 MG/2 ML NEB NEB SCH (06:48)
[2019-07-18] MEDS: Arformoterol 15 MCG/2 ML NEB NEB SCH (06:51)
[2019-07-18] MEDS: guaiFENesin ER 600 MG TAB PO SCH (08:13)
[2019-07-18] MEDS: predniSONE 20 MG TAB PO SCH (08:13)
[2019-07-18] MEDS: Potassium Chloride 10 MEQ TAB PO SCH (08:14)
[2019-07-18] MEDS: Oseltamivir 75 MG CAP PO SCH (08:15)
[2019-07-18] MEDS: Polyethylene Glycol 3350 17 GM Packet PO SCH (08:15)
--- NOTE | 2019-07-18 08:37 | RAD ---
EXAM: Chest 2 views: HISTORY: Pneumonia COMPARISON: 08/05/2017 FINDINGS: There is a normal-sized cardiomediastinal silhouette. There is no evidence of consolidation, mass, or pleural effusion. The bones are unremarkable. IMPRESSION: No evidence of acute cardiopulmonary disease
[2019-07-18 12:21] VITALS: BP 112/64; TEMP 98.2
--- NOTE | 2019-07-19 11:30 | DIS ---
DATE OF ADMISSION: 07/14/2019 DATE OF DISCHARGE: 07/18/2019 RESIDENT: Arturo Fu MD ADMITTING ATTENDING: Soren Shin MD DISCHARGE ATTENDING: Soren Shin MD CONSULTS: None. PROCEDURES: 1. Chest x-ray on 07/14/2019, demonstrating no acute findings. 2. Chest x-peter 07/18/2019, demonstrating no evidence of acute cardiopulmonary disease. PRIMARY DIAGNOSES: 1. Acute hypoxic respiratory failure and sepsis secondary to influenza A. 2. Chronic obstructive pulmonary disease with acute exacerbation. 3. Moderate persistent asthma with acute exacerbation. SECONDARY DIAGNOSES: 1. Osteoarthritis. 2. Tremor, likely essential. DISCHARGE MEDICATIONS: 1. Prednisone 20 mg tablet take 2 tablets (40 mg) p.o. q.a.m. with meals for 3 days, then take one tablet (20 mg) q.a.m. with meals for 4 additional days. 2. Tamiflu 75 mg p.o. b.i.d. x1 day. 3. Brovana 15 mcg via nebulizer b.i.d. 4. Xanax 2 mg p.o. q.h.s. p.r.n. 5. Pulmicort 0.25 mg/2 mL ampule b.i.d. 6. DuoNeb q.i.d. p.r.n. 7. Potassium chloride 10 mEq p.o. daily. 8. Singulair 10 mg p.o. daily p.r.n. 9. Prilosec 40 mg p.o. daily. 10. Keller 10/325 one tablet q.6 hours p.r.n. 11. Proventil 2 puffs p.o. q.4 hours p.r.n. DISCONTINUED MEDICATIONS: None. HISTORY OF PRESENT ILLNESS AND HOSPITAL COURSE: The patient is a 68-year-old female with past medical history of moderate persistent asthma and COPD, who presented to the ED with shortness of breath. The patient stated that she presented to the ER via ambulance after awakening with shortness of breath and increased cough. The patient initially met sepsis criteria in the ER with a fever of 101.3. She also endorsed generalized malaise and night sweats. The patient was found to be flu A positive in the ED. She was given 2 g of magnesium, started on Tamiflu, IV steroids, and given DuoNeb in the ED. She was initially tachypneic and tachycardiac and placed on nasal cannula for desats into the low 90s. She was admitted for further evaluation and management of acute hypoxic respiratory failure and sepsis secondary to influenza. Once on the floor, the patient was continued on scheduled breathing treatments of DuoNeb including as well as her home asthma, COPD medication regimen. She was continued on steroids and Tamiflu. It was monitored closely. Over the following days of hospitalization, the patient's respiratory status continue to improve. She was weaned to room air successfully, transitioned to oral steroids. Chest x- ray was reviewed and showed no signs of focal pneumonia. Procalcitonin was negative. PT had initial increase work of breathing and dyspnea on first few days of hospitalization. Lungs were tight on exam with diffuse end-expiratory wheeze that responded well to duoneb tx. On the day of discharge, the patient was ambulating without difficulty, tolerating p.o. well. Shortness of breath markedly improved. The patient did have some subjective fever and night sweats overnight; however, her vitals did remain stable. A repeat chest x-ray was obtained that was within normal limits. It was determined that the patient was safe for discharge. Discharge plan was discussed with the patient including the need to continue a steroid taper and finish out her course of Tamiflu. It was also discussed that the patient will need to continue DuoNeb q.4 hours while awake for the next 48 hours and return to p.r.n. use. I have also discussed that the patient needs to follow up with her air intelligence specialist and primary care doctor within 1 week preferably by the end of this week to be monitored closely due to the patient's underlying lung disease. Home medications were reviewed and it was discussed with the patient that she might benefit from a combined inhaler such as Dulera or Symbicort. However, the patient stated that in the past, she has not been covered by her insurance. Thus, it was determined that the patient will be continued on her current home medication to follow up with her air intelligence specialist and primary care provider for appropriate therapy as covered by her insurance. The patient voiced good understanding of this discharge plan and was eager to be discharged home. DISPOSITION: Stable. DISCHARGE INSTRUCTIONS: 1. Location: Home. 2. Diet: Regular. 3. Activity: As tolerated. 4. Followup: The patient is to follow up with her primary care physician within the end of this week and air intelligence specialist within 1 week of discharge. Job ID: [id number] LESLIE
== END 2019-07-18 12:37 | disposition home or self-care (01) | DRG 871 ==
LOC: ERS 09:27 → 2NO 13:49 → T4-A 21:17
PROVIDERS: ADMIT Family Medicine; ATTEND Family Medicine
DX: A41.89 Other specified sepsis (principal); J96.01 Acute respiratory failure with hypoxia; J44.1 Chronic obstructive pulmonary disease with (acute) exacerbation; J45.41 Moderate persistent asthma with (acute) exacerbation; J10.1 Influenza due to other identified influenza virus with other respiratory manifestations; M19.90 Unspecified osteoarthritis, unspecified site; F17.210 Nicotine dependence, cigarettes, uncomplicated; G25.0 Essential tremor; Z79.51 Long term (current) use of inhaled steroids; Z79.899 Other long term (current) drug therapy; Z98.51 Tubal ligation status; Z88.8 Allergy status to other drugs, medicaments and biological substances
CPT/HCPCS: 36415; 71045; 71046; 80053; 81003; 81015; 83605; 84145; 85025; 87040; 87804; 93005; 94640; 96361; 96374; 96375; J2930; J3475; J7512; J7620; J7626

== ENCOUNTER 2023-11-09 07:44 | Day surgery (SDC) | payer MEDICARE ==
[2023-11-08 09:58] VITALS: BMI 25.9
== END 2023-11-09 10:30 | disposition home or self-care (01) ==
LOC: SDC 07:44
PROVIDERS: ATTEND Internal Medicine Gastroenterology
PROC: 0DJD8ZZ Inspection of Lower Intestinal Tract, Via Natural or Artificial Opening Endoscopic (ICD-10-PCS; principal; 2023-11-09)
DX: K63.5 Polyp of colon (principal); K21.9 Gastro-esophageal reflux disease without esophagitis; J45.909 Unspecified asthma, uncomplicated; G43.909 Migraine, unspecified, not intractable, without status migrainosus; M19.90 Unspecified osteoarthritis, unspecified site
CPT/HCPCS: J2001; J2704